=== PATIENT | male | born 1970 | race African-American/Black ===

== ENCOUNTER 2024-01-22 13:36 | Inpatient (IN) | payer OTHER ==
[2024-01-22 14:31] VITALS: BMI 19.5
[2024-01-22] MEDS ORDERED: P-EPHED 60MG/TRIPROLIDI 2.5MG TABLET PO PRN (16:03)
[2024-01-22] MEDS ORDERED: LOPERAMIDE HCL 2 MG CAPSULE PO PRN (16:03)
[2024-01-22] MEDS ORDERED: BENZONATATE 200 MG CAPSULE PO PRN (16:03)
[2024-01-22] MEDS ORDERED: NICOTINE POLACRILEX 2 MG LOZENGE BC PRN (16:03)
[2024-01-22] MEDS ORDERED: NALOXONE HCL 0.4 MG/ML VIAL IM PRN (16:03)
[2024-01-22] MEDS ORDERED: NICOTINE POLACRILEX 2 MG GUM BUC PRN (16:03)
[2024-01-22] MEDS ORDERED: POLYETHYLENE GLYCOL (HEALTHYLAX) 3350 17 GM PACKET PO PRN (16:03)
[2024-01-22] MEDS ORDERED: DOCUSATE SODIUM 100 MG CAPSULE (FP) PO PRN (16:03)
[2024-01-22] MEDS ORDERED: BENZOCAINE/MENTHOL (CHLORASEPTIC ) LOZENGE MM PRN (16:03)
[2024-01-22] MEDS ORDERED: MAG HYDROX/AL HYDROX/SIMETH 30 ML UNIT-DOSE CUP PO PRN (16:03)
[2024-01-22] MEDS ORDERED: NALOXONE (NARCAN) HCL 4 MG/0.1 ML SPRAY NS PRN (16:03)
[2024-01-22] MEDS ORDERED: ACETAMINOPHEN 325 MG TABLET (FP) PO PRN (16:03)
[2024-01-22] MEDS ORDERED: BISACODYL 5 MG TABLET.DR (FP) PO PRN (16:03)
[2024-01-22] MEDS ORDERED: guaiFENesin 600 MG TABLET.ER (FP) PO PRN (16:03)
[2024-01-22] MEDS ORDERED: IBUPROFEN 400 MG TABLET (FP) PO PRN (16:03)
[2024-01-22] MEDS: TUBERCULIN PPD 5 TU/0.1ML SYRINGE (IN PATIENT USE ONLY) ID ONE (19:05)
[2024-01-22] MEDS: THIAMINE 100 MG TABLET PO SCH (21:27)
[2024-01-22] MEDS: MELATONIN 5 MG TABLETS PO SCH (21:27)
[2024-01-22] MEDS: IBUPROFEN 600 MG TABLET (FP) PO PRN (21:30)
[2024-01-22] MEDS: LIDOCAINE PATCH REMOVAL MC SCH (22:29)
[2024-01-23] MEDS ORDERED: methaDONE HCL 10 MG TABLET PO SCH (09:30)
[2024-01-23] MEDS ORDERED: DOXYCYCLINE HYCLATE 100 MG CAPSULE PO SCH (10:00)
[2024-01-23] MEDS: methaDONE 40 MG, methaDONE 10 MG PO ONE (10:33)
[2024-01-23] MEDS: ELVITEG/COB/EMTRI/TENOF (GENVOYA) TABLET PO SCH (10:33)
[2024-01-23] MEDS: DOXYCYCLINE HYCLATE 100 MG TABLET PO SCH (10:33)
[2024-01-23] MEDS: PRENATAL VITAMINS W/ FOLIC ACID TABLET (FP) PO SCH (10:33)
[2024-01-23] MEDS: LIDOCAINE 5% TOPICAL PATCH TP SCH (10:34)
[2024-01-23 12:02] LABS: HEMATOCRIT 37.9 % (35.4-49); HEMOGLOBIN 12.7 GM/dL (11.7-16.9); MCH 27.1 pg (25.7-33.7); MCHC 33.6 g/dl (32.0-35.9); MEAN CELL VOLUME 80.6 fl (80-96); MEAN PLT VOLUME 7.6 fl (7.5-11.1); PLATELET COUNT 201 10^3/uL (134-434); RBC 4.69 M/mm3 (4.00-5.60); RDW 16.5 % (11.9-15.9); WHITE BLOOD COUNT 4.5 K/mm3 (4.0-10.0)
[2024-01-23 12:07] LABS: POTASSIUM 3.8 mmol/L (3.5-5.1)
[2024-01-23 12:13] LABS: CALCIUM 9.1 mg/dL (8.5-10.1)
[2024-01-23 12:14] LABS: ALBUMIN 3.3 g/dl (3.4-5.0); BLOOD UREA NITROGEN 11.2 mg/dL (7-18)
[2024-01-23 12:17] LABS: CREATININE 0.7 mg/dL (0.55-1.3)
[2024-01-23 12:19] LABS: BILIRUBIN,TOTAL 0.4 mg/dL (0.2-1); TOT PROT 7.1 g/dl (6.4-8.2)
[2024-01-23 16:46] LABS: SYPHILIS W/ RPR CONF REACTIVE (NONREACTIVE)
[2024-01-23 23:16] LABS: URINE APPEARANCE CLEAR; URINE BILIRUBIN NEGATIVE (NEGATIVE); URINE COLOR YELLOW; URINE GLUCOSE (UA) NEGATIVE (NEGATIVE); URINE KETONE NEGATIVE (NEGATIVE); URINE LEUK ESTERASE NEGATIVE (NEGATIVE); URINE NITRITE NEGATIVE (NEGATIVE); URINE PROTEIN NEGATIVE (NEGATIVE); URINE UROBILINOGEN 0.2 mg/dL (0.2-1.0)
[2024-01-24] MEDS: methaDONE 40 MG, methaDONE 10 MG PO SCH (05:38)
[2024-01-24] MEDS: amLODIPine BESYLATE 10 MG TABLET (FP) PO SCH (16:30)
[2024-01-26] MEDS: ELVITEG/COB/EMTRI/TENOF (GENVOYA) TABLET PO SCH (07:00)
[2024-01-26] MEDS: ALBUTEROL SO4 HFA INHALER IH PRN (13:14)
[2024-01-27] MEDS ORDERED: ACETAMINOPHEN 325 MG TABLET (FP) PO PRN (14:44)
[2024-01-28] MEDS ORDERED: methaDONE HCL 40 MG DISPERSABLE TABLET PO SCH (06:00)
[2024-01-28] MEDS: methaDONE 40 MG, methaDONE 20 MG PO SCH (06:09)
[2024-02-02] MEDS ORDERED: LIDOCAINE PATCH REMOVAL MC PRN (12:31)
[2024-02-02] MEDS: MAGNESIUM HYDROX 2400MG/30ML ORAL SUSPENSION 30 ML CUP PO PRN (21:24)
[2024-02-06 06:45] VITALS: RESP 18; TEMP 98.6
[2024-02-06 09:48] VITALS: BP 112/71; PULSE 68
== END 2024-02-06 09:10 | disposition home or self-care (01) | DRG 772 ==
LOC: YASAS 13:36 → Y3NR 17:44 → Y3E 01-24 12:14
PROVIDERS: ADMIT Allergy & Immunology; ATTEND Psychiatry & Neurology Pain Medicine
PROC: HZ42ZZZ Group Counseling for Substance Abuse Treatment, Cognitive-Behavioral (ICD-10-PCS; principal; 2024-01-22)
DX: F14.20 Cocaine dependence, uncomplicated (principal); F11.20 Opioid dependence, uncomplicated; F17.210 Nicotine dependence, cigarettes, uncomplicated; Z21 Asymptomatic human immunodeficiency virus [HIV] infection status; G47.00 Insomnia, unspecified; M25.552 Pain in left hip; M54.30 Sciatica, unspecified side; Z99.89 Dependence on other enabling machines and devices; Z79.899 Other long term (current) drug therapy
CPT/HCPCS: 36415; 80053; 80305; 81003; 82652; 83036; 83735; 85027; 86593; 86780; 86803; 87811; 93005; 93010